=== PATIENT | male | born 1960 | race African-American/Black ===

== ENCOUNTER 2017-10-29 20:14 | Emergency (ER) | payer MEDICAID ==
[~2017-10-29] VITALS: Ht 289.6 cm; Wt 97.0 kg
[2017-10-29 21:39] VITALS: BP 142/90
== END 2017-10-30 02:39 | disposition left against medical advice (07) ==
LOC: ER 20:14
DX: Z53.21 Procedure and treatment not carried out due to patient leaving prior to being seen by health care provider (principal)